=== PATIENT | male | born 1960 | race Two or more races ===

== ENCOUNTER 2021-03-05 09:00 | Inpatient (IN) | payer OTHER ==
[~2021-03-05] VITALS: Ht 157.5 cm; Wt 53.5 kg
[2021-03-05] MEDS ORDERED: ZOCOR20 MG PO (10:25)
[2021-03-08] MEDS ORDERED: SUCRALFATE1 GM/10 ML (08:15)
[2021-03-08] MEDS ORDERED: APETIGEN L790 MG/15 (08:15)
[2021-03-08] MEDS ORDERED: FAMOTIDINE40 MG (08:15)
[2021-03-08] MEDS ORDERED: METOCLOPRAMIDE10 MG (08:15)
[2021-03-08] MEDS ORDERED: HYDROCORTISONE30 G4 (08:15)
[2021-03-08] MEDS ORDERED: PANTOPRAZOLE SO40 MG (08:15)
[2021-03-08] MEDS ORDERED: STOOL SOFTENER240 MG (08:15)
[2021-03-08] MEDS ORDERED: HYDROXYZINE PAM50 MG (08:16)
[2021-03-08] MEDS ORDERED: ROSUVASTATIN CA20 MG (08:16)
[2021-03-10] MEDS ORDERED: PERCOCET 5-3251 EACH PO (13:40)
[2021-03-10] MEDS ORDERED: PRILOSEC OTC20 MG PO (13:40)
== END 2021-03-10 15:29 | disposition home or self-care (01) | DRG 330 ==
LOC: SURH 03-07 09:00 → O/R 03-07 09:52 → SURH 03-07 09:52
PROVIDERS: ADMIT Surgery; ATTEND Surgery
PROC: 0DTP4ZZ Resection of Rectum, Percutaneous Endoscopic Approach (ICD-10-PCS; 2021-03-07)
PROC: 07BC4ZZ Excision of Pelvis Lymphatic, Percutaneous Endoscopic Approach (ICD-10-PCS; 2021-03-07)
PROC: 0DBN4ZZ Excision of Sigmoid Colon, Percutaneous Endoscopic Approach (ICD-10-PCS; principal; 2021-03-07 09:30)
DX: C19 Malignant neoplasm of rectosigmoid junction (principal); C78.7 Secondary malignant neoplasm of liver and intrahepatic bile duct; E78.00 Pure hypercholesterolemia, unspecified; R59.0 Localized enlarged lymph nodes; R97.0 Elevated carcinoembryonic antigen [CEA]

== ENCOUNTER 2021-03-27 13:49 | Emergency (ER) | payer OTHER ==
[~2021-03-27] VITALS: Ht 157.5 cm; Wt 49.9 kg
[~2021-03-27 13:49] MED LIST: APETIGEN L790 MG/15; FAMOTIDINE40 MG; HYDROCORTISONE30 G4; HYDROXYZINE PAM50 MG; METOCLOPRAMIDE10 MG; PANTOPRAZOLE SO40 MG; PERCOCET 5-3251 EACH PO; PRILOSEC OTC20 MG PO; ROSUVASTATIN CA20 MG; STOOL SOFTENER240 MG; SUCRALFATE1 GM/10 ML; ZOCOR20 MG PO
== END 2021-03-27 22:45 | disposition home or self-care (01) ==
LOC: ER 13:49
DX: R11.11 Vomiting without nausea (principal); R10.9 Unspecified abdominal pain